=== PATIENT | male | born 2000 | race Caucasian/White ===

== ENCOUNTER 2023-04-23 12:26 | Emergency (ER) | payer MEDICAID ==
[~2023-04-23] VITALS: Ht 177.8 cm; Wt 68.0 kg
[2023-04-23 12:34] VITALS: BP_SYST 129; PULSE 83; RESP 18; TEMP 99; O2SAT 98
[2023-04-23 13:17] LABS: COVID19 ANTIGEN SOFIA FIA NEGATIVE (NEGATIVE)
[2023-04-23 13:32] LABS: INFLUENZA TYPE A Negative (NEGATIVE); INFLUENZA TYPE B NEGATIVE (NEGATIVE)
[2023-04-23] MEDS ORDERED: IPRATROPIUM/ALBUTEROL SULFATE 3 ML AMPUL.NEB (DUONEB) INH ONE (13:45)
[2023-04-23] MEDS ORDERED: DEXAMETHASONE SOD PHOSPHATE 10 MG/ML VIAL PO ONE (13:45)
[2023-04-23] MEDS ORDERED: ALBU2.5V7 INH (14:39)
[2023-04-23] MEDS ORDERED: ALBMDI INH (14:39)
[2023-04-23] MEDS ORDERED: BUDE6.9H INH (14:39)
[2023-04-23 15:58] VITALS: BP_SYST 129; PULSE 83; RESP 18; TEMP 99; O2SAT 99
== END 2023-04-23 15:29 | disposition home or self-care (01) ==
LOC: SED 12:26
DX: J45.901 Unspecified asthma with (acute) exacerbation (principal); J06.9 Acute upper respiratory infection, unspecified; R05.9 Cough, unspecified; R50.9 Fever, unspecified; J34.89 Other specified disorders of nose and nasal sinuses; Z79.899 Other long term (current) drug therapy; Z20.822 Contact with and (suspected) exposure to COVID-19
CPT/HCPCS: 99283; 87426; 36415; 94640; 87804 ×2; J1100